=== PATIENT | female | born 1955 | race Caucasian/White ===

== ENCOUNTER → 2017-08-06 | Outpatient (CLI) | payer OTHER, MEDICARE ==
[~2017-08-06] MED LIST: ALBUTEROL0.63 MG/3; ALBUTEROL1.25 MG/3 INH; ALLERGY INJ INJ; ATENOLOL25 MG PO; ATENOLOL50 MG PO; ATORVASTATIN CA20 MG PO; BENADRYL25 M1 PO; BUDESONIDE0.5 MG/2 M NEB; CEFTIN500 MG PO; DAILY MULTIPLE1 EACH PO; FLUTICASONE; GABAPENTIN100 MG PO; GINKGO BILOBA60 MG PO; IRON PO; LORATADINE10 MG PO; LOSARTAN-HCTZ1 EAC1 PO; MACROBID 100 M100 MG PO; MELOXICAM15 MG PO; MONTELUKAST SOD10 MG PO; MYRBETRIQ25 MG PO; NEURONTIN100 MG PO; NOVOLIN N100 UNIT/1 INJ; NOVOLIN N100 UNIT/1 SC; NOVOLIN N100 UNIT/1 SQ; NOVOLIN R100 UNIT/1 INJ; PHENAZOPYRIDIN100 MG PO; PHENAZOPYRIDIN200 MG PO; PROAIR HFA INH8.5 GM INH; TIZANIDINE HCL4 MG PO; TYLENOL WITH C1 EACH PO; VITAMIN B-121000 MC2 PO; VITAMIN B-12500 MCG PO; VITAMIN E400 UNI1 PO
--- NOTE | 2017-08-06 16:39 | Diagnostic Imaging Report ---
PROCEDURE:THORACIC SPINE 2VW COMPARISON:None. INDICATIONS:SEVERE BACK PAIN FINDINGS:Normal mineralization. No acute displaced fracture or dislocation. No spondylolisthesis. Moderate multilevel degenerative disc changes in the thoracic spine. No aggressive lytic or sclerotic lesions. Paravertebral soft tissues are unremarkable. CONCLUSION:No acute abnormalities. Moderate multilevel degenerative disc changes in the thoracic spine. Be Owen M.D. Dictated by: Be Owen M.D. on 08/06/2017 at 16:47 Electronically approved by: Be Owen M.D. on 08/06/2017 at 16:47
--- NOTE | 2017-08-06 16:41 | Diagnostic Imaging Report ---
PROCEDURE:L-SPINE COMPLETE COMPARISON:Patients [facility], CT, CT ABDOMEN/PELVIS WO, 05/28/2017, 16:47. INDICATIONS:SEVERE BACK PAIN FINDINGS: There are 5 lumbar-type vertebral bodies. The vertebral bodies are well-aligned without evidence of spondylolisthesis. There are no acute, displaced fractures, lytic or blastic lesions. Mild multilevel degenerative disc changes in the lumbosacral spine. Vertebral heights are preserved. Facet hypertrophy L4-L5 and L5-S1, predominantly in the right lateral aspect. Bilateral oblique views show no spondylolysis. The sacroiliac joints are unremarkable. CONCLUSION: No acute abnormalities. Degenerative joint disease in the form of facet hypertrophy. L4-L5 and L5-S1, right greater than left. Be Owen M.D. Dictated by: Be Owen M.D. on 08/06/2017 at 16:49 Electronically approved by: Be Owen M.D. on 08/06/2017 at 16:49
--- NOTE | 2017-08-06 16:42 | Diagnostic Imaging Report ---
PROCEDURE:SACRUM X-RAY INDICATION:Severe low back pain COMPARISON:None. FINDINGS: Normal mineralization. No acute displaced fracture or dislocation. Facet hypertrophy worse at L5-S1, and worse on the right than on the left side. [place] joints are unremarkable. No lytic or blastic lesion. Sacral arches are preserved. CONCLUSION: No acute abnormalities. Facet hypertrophy, worse at L5-S1, and worse on the right on the left. Be Owen M.D. Dictated by: Be Owen M.D. on 08/06/2017 at 16:50 Electronically approved by: Be Owen M.D. on 08/06/2017 at 16:50
== END ==
LOC: RAD 15:01
PROVIDERS: ATTEND Internal Medicine
DX: S23.9XXA Sprain of unspecified parts of thorax, initial encounter (principal); M47.817 Spondylosis without myelopathy or radiculopathy, lumbosacral region
CPT/HCPCS: 72070; 72110; 72220

== ENCOUNTER 2021-10-24 14:21 | Observation (INO) | payer MEDICARE, OTHER ==
[~2021-10-24] VITALS: Ht 154.9 cm; Wt 113.4 kg
[2021-10-24] MEDS ORDERED: NITROGLYCERIN 2% OINT 1 GM PKT TOP ONE (14:45)
[2021-10-24 14:52] LABS: BASOPHILS # (AUTO) 0.1 (0.0-0.1); BASOPHILS % 0.6 % (0.0-1.0); EOSINOPHILS # (AUTO) 0.4 (0.0-0.4); EOSINOPHILS % 3.6 % (0.0-6.0); HEMATOCRIT 43.2 % (34.2-44.1); HEMOGLOBIN 14.3 g/dL (12.0-16.0); LYMPHOCYTES # (AUTO) 4.2 (1.0-3.2); LYMPHOCYTES % 34.4 % (18.0-39.1); MEAN CORPUSCULAR HEMOGLOBIN 31.3 pg (28-32); MEAN CORPUSCULAR HGB CONC 33.1 g/dL (31-35); MEAN CORPUSCULAR VOLUME 94.5 fL (81-99); MONOCYTES # (AUTO) 0.8 (0.2-0.8); MONOCYTES % 6.6 % (4.4-11.3); NEUTROPHILS # (AUTO) 6.6 (2.1-6.9); NEUTROPHILS % 54.4 % (38.7-80.0); PLATELET COUNT 210 x10e3/uL (140-360); RED BLOOD COUNT 4.57 x10e6/uL (3.6-5.1); RED CELL DISTRIBUTION WIDTH 13.2 % (11.7-14.4)
[2021-10-24 14:57] LABS: INR 0.95; PROTHROMBIN TIME 13.5 seconds (11.9-14.5)
[2021-10-24 15:06] LABS: ALBUMIN 3.6 g/dL (3.5-5.0); ALBUMIN/GLOBULIN RATIO 0.9 (0.8-2.0); ANION GAP 15.9 mmol/L (8-16); CALCIUM 9.1 mg/dL (8.4-10.2); CREATININE, SERUM 0.98 mg/dL (0.57-1.11); MAGNESIUM 1.7 MG/DL (1.3-2.1); POTASSIUM 3.9 mmol/L (3.5-5.1)
[2021-10-24 15:13] LABS: CREATINE KINASE MB 0.8 ng/mL (0-5.0)
[2021-10-24] MEDS ORDERED: ONDANSETRON HCL INJ 2MG/ML 2ML 2 MG/ML VIAL IV PRN (15:30)
[2021-10-24] MEDS ORDERED: Morphine 2mg Syringe 2 MG/ML SYR IV PRN (15:30)
[2021-10-24] MEDS ORDERED: ENOXAPARIN SODIUM INJ 100 MG/ML SYR SC ONE (15:30)
[2021-10-24 17:06] VITALS: BP 125/54
[2021-10-24 17:22] VITALS: BP 125/54
[2021-10-24 17:31] VITALS: BP 125/54
[2021-10-24] MEDS ORDERED: DEXTROSE 50% SYRINGE 50 ML IV PRN (17:45)
[2021-10-24] MEDS: NITROGLYCERIN 2% OINT 1 GM PKT TOP SCH (19:56)
[2021-10-24 20:00] VITALS: BP 103/47
[2021-10-24 20:26] VITALS: BP 103/47
[2021-10-24] MEDS ORDERED: FAMOTIDINE 20 MG/2 ML VIAL IV SCH (21:00)
[2021-10-24] MEDS: INSULIN REGULAR, HUMAN 100 UNIT/1 ML SQ SCH (21:44)
[2021-10-25] MEDS: NITROGLYCERIN 2% OINT 1 GM PKT TOP SCH ×5 (00:13→23:52)
[2021-10-25 00:25] VITALS: BP 115/52
[2021-10-25 02:10] LABS: CREATINE KINASE MB 0.6 ng/mL (0-5.0)
[2021-10-25 05:41] VITALS: BP 116/45
[2021-10-25 07:01] LABS: BASOPHILS # (AUTO) 0.1 (0.0-0.1); BASOPHILS % 0.8 % (0.0-1.0); EOSINOPHILS # (AUTO) 0.4 (0.0-0.4); EOSINOPHILS % 4.4 % (0.0-6.0); HEMATOCRIT 43.1 % (34.2-44.1); HEMOGLOBIN 14.1 g/dL (12.0-16.0); LYMPHOCYTES # (AUTO) 3.2 (1.0-3.2); MEAN CORPUSCULAR HEMOGLOBIN 31.1 pg (28-32); MEAN CORPUSCULAR HGB CONC 32.7 g/dL (31-35); MEAN CORPUSCULAR VOLUME 95.1 fL (81-99); MONOCYTES # (AUTO) 0.7 (0.2-0.8); MONOCYTES % 7.1 % (4.4-11.3); NEUTROPHILS % 53.4 % (38.7-80.0); PLATELET COUNT 178 x10e3/uL (140-360); RED BLOOD COUNT 4.53 x10e6/uL (3.6-5.1); RED CELL DISTRIBUTION WIDTH 13.2 % (11.7-14.4)
[2021-10-25 07:22] LABS: ALANINE AMINOTRANSFERASE 29 IU/L (0-55); ALBUMIN 3.4 g/dL (3.5-5.0); ALBUMIN/GLOBULIN RATIO 0.9 (0.8-2.0); ALKALINE PHOSPHATASE 102 IU/L (40-150); ANION GAP 15.1 mmol/L (8-16); BLOOD UREA NITROGEN 20 mg/dL (7-26); BUN/CREATININE RATIO 21 (6-25); CALCIUM 9.1 mg/dL (8.4-10.2); CARBON DIOXIDE 25 mmol/L (22-29); CHLORIDE 104 mmol/L (98-107); CHOL/HDL RATIO 4.1 (3.0-3.6); CHOLESTEROL 142 MD/DL (0-199); CREATININE, SERUM 0.96 mg/dL (0.57-1.11); EST GLOMERULAR FILTRATION RATE 58 ML/MIN (60-); GLUCOSE 211 mg/dL (74-118); HDL CHOLESTEROL 35 MG/DL (40-60); POTASSIUM 4.1 mmol/L (3.5-5.1); SODIUM 140 mmol/L (136-145); TRIGLYCERIDES 444 MG/DL (0-149)
[2021-10-25 07:42] LABS: MAGNESIUM 1.8 MG/DL (1.3-2.1)
[2021-10-25] MEDS: INSULIN REGULAR, HUMAN 100 UNIT/1 ML SQ SCH ×4 (07:45→21:43)
[2021-10-25 07:49] LABS: CREATINE KINASE 68 IU/L (29-168)
[2021-10-25 08:00] VITALS: BP 116/45
[2021-10-25 08:04] LABS: THYROID STIMULATING HORMONE 1.705 uIU/mL (0.350-4.940)
[2021-10-25 08:16] VITALS: BP 149/74
[2021-10-25] MEDS ORDERED: ALBUTEROL SULF 0.083% NEB SOLN 3 ML NEB INH PRN (08:30)
[2021-10-25] MEDS ORDERED: FAMOTIDINE 20 MG TAB PO SCH (09:00)
[2021-10-25] MEDS: MONTELUKAST SODIUM 10 MG TAB PO SCH (09:40)
[2021-10-25] MEDS: CYANOCOBALAMIN 1,000 MCG TAB PO SCH (09:40)
[2021-10-25] MEDS: ATENOLOL 50 MG TAB PO SCH (09:40)
[2021-10-25] MEDS: ASPIRIN 325 MG TAB EC PO SCH (09:40)
[2021-10-25] MEDS: TIZANIDINE HCL 4 MG TAB PO SCH ×2 (09:42→16:51)
[2021-10-25] MEDS: PHENAZOPYRIDINE HCL 100 MG TAB PO SCH ×3 (10:40→20:53)
[2021-10-25] MEDS: SUCRALFATE 1 GM/10 ML SUSP NG SCH ×4 (10:40→20:53)
[2021-10-25] MEDS: DIPHENHYDRAMINE HCL 25 MG CAP PO SCH (10:40)
[2021-10-25] MEDS: BUDESONIDE 0.5MG/2 ML NEB NEB SCH ×2 (10:56→18:20)
[2021-10-25 11:43] VITALS: BP 110/42
[2021-10-25] MEDS ORDERED: BUDESONIDE 0.5MG/2 ML NEB NEB SCH (12:00)
[2021-10-25] MEDS: CHOLESTYRAMINE 4 GM PACKET PO SCH (16:50)
[2021-10-25 20:00] VITALS: BP 99/53
[2021-10-25] MEDS: FUROSEMIDE INJ 10 MG/ML 4 ML VIAL IV SCH (20:30)
[2021-10-25] MEDS: ENOXAPARIN 30 MG/0.3 ML SYR SC SCH (20:53)
[2021-10-25] MEDS ORDERED: ATORVASTATIN 10 MG TAB PO SCH (21:00)
[2021-10-26 00:19] VITALS: BP 102/39
[2021-10-26 04:39] VITALS: BP 145/46
[2021-10-26] MEDS: NITROGLYCERIN 2% OINT 1 GM PKT TOP SCH ×2 (05:29→12:00)
[2021-10-26] MEDS: BUDESONIDE 0.5MG/2 ML NEB NEB SCH (06:48)
[2021-10-26 06:49] LABS: BASOPHILS # (AUTO) 0.1 (0.0-0.1); BASOPHILS % 0.6 % (0.0-1.0); EOSINOPHILS # (AUTO) 0.3 (0.0-0.4); EOSINOPHILS % 3.9 % (0.0-6.0); HEMATOCRIT 43.5 % (34.2-44.1); HEMOGLOBIN 13.9 g/dL (12.0-16.0); LYMPHOCYTES # (AUTO) 3.2 (1.0-3.2); MEAN CORPUSCULAR VOLUME 97.1 fL (81-99); MONOCYTES # (AUTO) 0.6 (0.2-0.8); MONOCYTES % 6.7 % (4.4-11.3); NEUTROPHILS # (AUTO) 4.1 (2.1-6.9); NEUTROPHILS % 49.3 % (38.7-80.0); PLATELET COUNT 172 x10e3/uL (140-360); RED BLOOD COUNT 4.48 x10e6/uL (3.6-5.1); RED CELL DISTRIBUTION WIDTH 12.9 % (11.7-14.4)
[2021-10-26 07:13] LABS: ALBUMIN 3.3 g/dL (3.5-5.0); ALBUMIN/GLOBULIN RATIO 0.8 (0.8-2.0); ANION GAP 13.2 mmol/L (8-16); CREATININE, SERUM 1.08 mg/dL (0.57-1.11); POTASSIUM 4.2 mmol/L (3.5-5.1)
[2021-10-26] MEDS ORDERED: PANTOPRAZOLE SOD 40 MG TABEC PO SCH (07:30)
[2021-10-26 08:00] VITALS: BP 145/46
[2021-10-26 08:16] VITALS: BP 111/38
[2021-10-26] MEDS: SUCRALFATE 1 GM/10 ML SUSP NG SCH ×2 (08:22→11:30)
[2021-10-26] MEDS: INSULIN REGULAR, HUMAN 100 UNIT/1 ML SQ SCH ×2 (08:24→11:30)
[2021-10-26] MEDS: ATENOLOL 50 MG TAB PO SCH (09:00)
[2021-10-26] MEDS ORDERED: FENOFIBRATE 145 MG TAB PO SCH (09:00)
[2021-10-26] MEDS: CHOLESTYRAMINE 4 GM PACKET PO SCH (09:00)
[2021-10-26] MEDS: DIPHENHYDRAMINE HCL 25 MG CAP PO SCH (09:30)
[2021-10-26] MEDS: PHENAZOPYRIDINE HCL 100 MG TAB PO SCH (09:30)
[2021-10-26] MEDS: FUROSEMIDE INJ 10 MG/ML 4 ML VIAL IV SCH (09:30)
[2021-10-26] MEDS: ASPIRIN 325 MG TAB EC PO SCH (09:30)
[2021-10-26] MEDS: MONTELUKAST SODIUM 10 MG TAB PO SCH (09:31)
[2021-10-26] MEDS: CYANOCOBALAMIN 1,000 MCG TAB PO SCH (09:32)
[2021-10-26] MEDS: ENOXAPARIN 30 MG/0.3 ML SYR SC SCH (09:33)
[2021-10-26] MEDS: TIZANIDINE HCL 4 MG TAB PO SCH (09:33)
[2021-10-26] MEDS ORDERED: ULTRAM50 MG PO (10:17)
[2021-10-26] MEDS ORDERED: FLUCONAZOLE 100 MG TAB PO ONE ×2 (10:30→13:45)
[2021-10-26 12:59] VITALS: BP 125/66
== END 2021-10-26 15:59 | disposition home or self-care (01) ==
LOC: ER 14:26 → INTOOBSV 15:21 → ERHOLD 15:21 → MED/SURG3 16:53
PROVIDERS: ADMIT Internal Medicine; ATTEND Internal Medicine
DX: R07.89 Other chest pain (principal); I10 Essential (primary) hypertension; E11.42 Type 2 diabetes mellitus with diabetic polyneuropathy; J44.9 Chronic obstructive pulmonary disease, unspecified; E78.2 Mixed hyperlipidemia; K21.9 Gastro-esophageal reflux disease without esophagitis; Z90.49 Acquired absence of other specified parts of digestive tract; Z87.891 Personal history of nicotine dependence; Z88.1 Allergy status to other antibiotic agents; Z88.2 Allergy status to sulfonamides; Z88.8 Allergy status to other drugs, medicaments and biological substances; M19.90 Unspecified osteoarthritis, unspecified site; Z87.11 Personal history of peptic ulcer disease; L30.4 Erythema intertrigo; Z68.42 Body mass index [BMI] 45.0-49.9, adult; Z20.822 Contact with and (suspected) exposure to COVID-19; Z79.4 Long term (current) use of insulin
CPT/HCPCS: 36415 ×3; 71045; 80053 ×3; 80061; 82550 ×2; 82553 ×2; 82948 ×3; 83036; 83735 ×2; 83880; 84100; 84443; 84484 ×2; 85025 ×3; 85610; 85730; 93005; 93306; 94640 ×3; 94799 ×3; 96372; 97116; 97139; 97161; 99284; G0378 ×3; J1650 ×3; J1940; J2270; S0164; U0002

== ENCOUNTER 2022-09-28 19:57 | Inpatient (IN) | payer MEDICARE, OTHER ==
[~2022-09-28] VITALS: Ht 154.9 cm; Wt 113.4 kg
[~2022-09-28 19:57] MED LIST changes: +ULTRAM50 MG PO
[2022-09-28] MEDS ORDERED: NITROGLYCERIN 2% OINT 1 GM PKT TOP ONE (21:00)
[2022-09-28 21:40] LABS: ALBUMIN 3.3 g/dL (3.5-5.0); ALBUMIN/GLOBULIN RATIO 0.9 (0.8-2.0); ANION GAP 16.6 mmol/L (8-16); CALCIUM 9.1 mg/dL (8.4-10.2); CREATININE, SERUM 1.14 mg/dL (0.57-1.11); POTASSIUM 3.6 mmol/L (3.5-5.1)
[2022-09-28 21:45] LABS: BASOPHILS # (AUTO) 0.1 (0.0-0.1); BASOPHILS % 0.7 % (0.0-1.0); EOSINOPHILS # (AUTO) 0.4 (0.0-0.4); EOSINOPHILS % 3.5 % (0.0-6.0); HEMATOCRIT 45.9 % (34.2-44.1); HEMOGLOBIN 14.9 g/dL (12.0-16.0); LYMPHOCYTES % 38.5 % (18.0-39.1); MEAN CORPUSCULAR HEMOGLOBIN 30.7 pg (28-32); MEAN CORPUSCULAR HGB CONC 32.5 g/dL (31-35); MEAN CORPUSCULAR VOLUME 94.4 fL (81-99); MONOCYTES # (AUTO) 0.8 (0.2-0.8); MONOCYTES % 7.6 % (4.4-11.3); NEUTROPHILS # (AUTO) 5.2 (2.1-6.9); NEUTROPHILS % 49.4 % (38.7-80.0); PLATELET COUNT 186 x10e3/uL (140-360); RED BLOOD COUNT 4.86 x10e6/uL (3.6-5.1); RED CELL DISTRIBUTION WIDTH 13.2 % (11.7-14.4)
[2022-09-28] MEDS ORDERED: ALBUTEROL/IPRATROPIUM 3 ML NEB NEB PRN (22:30)
[2022-09-28] MEDS ORDERED: CLOPIDOGREL BISULFATE 75 MG TAB PO ONE (22:30)
[2022-09-28] MEDS ORDERED: DEXTROSE 50% SYRINGE 50 ML IV PRN (22:30)
[2022-09-28 23:03] LABS: CREATINE KINASE MB 0.8 ng/mL (0-5.0)
[2022-09-29] VITALS (7 sets, daily range): BP systolic 125–138; BP diastolic 46–68
[2022-09-29] MEDS ORDERED: FUROSEMIDE40 MG PO (00:43)
[2022-09-29] MEDS ORDERED: NITROFURANTOIN100 MG PO ×2 (00:43)
[2022-09-29] MEDS ORDERED: NITROGLYCERIN0.4 MG SL (00:43)
[2022-09-29] MEDS ORDERED: ATORVASTATIN CA10 MG PO (00:43)
[2022-09-29] MEDS: NITROGLYCERIN 2% OINT 1 GM PKT TOP SCH ×2 (01:03→06:01)
[2022-09-29 04:44] LABS: BASOPHILS # (AUTO) 0.1 (0.0-0.1); BASOPHILS % 0.7 % (0.0-1.0); EOSINOPHILS # (AUTO) 0.4 (0.0-0.4); EOSINOPHILS % 4.4 % (0.0-6.0); HEMATOCRIT 46.3 % (34.2-44.1); HEMOGLOBIN 14.7 g/dL (12.0-16.0); LYMPHOCYTES # (AUTO) 3.5 (1.0-3.2); LYMPHOCYTES % 36.3 % (18.0-39.1); MEAN CORPUSCULAR HEMOGLOBIN 30.6 pg (28-32); MEAN CORPUSCULAR HGB CONC 31.7 g/dL (31-35); MEAN CORPUSCULAR VOLUME 96.3 fL (81-99); MONOCYTES # (AUTO) 0.8 (0.2-0.8); MONOCYTES % 8.2 % (4.4-11.3); NEUTROPHILS # (AUTO) 4.9 (2.1-6.9); PLATELET COUNT 169 x10e3/uL (140-360); RED BLOOD COUNT 4.81 x10e6/uL (3.6-5.1)
[2022-09-29 05:04] LABS: ALBUMIN 3.1 g/dL (3.5-5.0); ALBUMIN/GLOBULIN RATIO 0.9 (0.8-2.0); ANION GAP 16.3 mmol/L (8-16); CALCIUM 9.2 mg/dL (8.4-10.2); CHOL/HDL RATIO 4.8 (3.0-3.6); CREATININE, SERUM 1.03 mg/dL (0.57-1.11); POTASSIUM 3.3 mmol/L (3.5-5.1)
[2022-09-29 05:23] LABS: CREATINE KINASE MB 0.8 ng/mL (0-5.0)
[2022-09-29] MEDS: INSULIN REGULAR, HUMAN 100 UNIT/1 ML SQ SCH ×4 (07:30→21:00)
[2022-09-29] MEDS ORDERED: CLOPIDOGREL BISULFATE 75 MG TAB PO SCH (09:00)
[2022-09-29] MEDS ORDERED: ASPIRIN 81 MG ENTERIC COATED PO SCH (09:00)
[2022-09-29] MEDS: METOPROLOL SUCCINATE 25 MG TAB XL PO SCH (11:15)
[2022-09-29] MEDS ORDERED: NEURONTIN100 MG PO (11:47)
[2022-09-29 16:02] LABS: CREATINE KINASE 43 IU/L (29-168)
[2022-09-29] MEDS: ATORVASTATIN 10 MG TAB PO SCH (20:33)
[2022-09-29] MEDS ORDERED: ASPIRIN 81 MG ENTERIC COATED PO ONE (21:30)
[2022-09-29] MEDS ORDERED: HYDROCODONE/APAP 5MG-325MG TAB PO ONE (21:30)
[2022-09-30] VITALS (13 sets, daily range): BP systolic 125–163; BP diastolic 54–103
[2022-09-30] MEDS ORDERED: ALPRAZOLAM 0.25 MG TAB PO ONE (04:15)
[2022-09-30] MEDS: INSULIN REGULAR, HUMAN 100 UNIT/1 ML SQ SCH ×4 (07:30→21:00)
[2022-09-30] MEDS: METOPROLOL SUCCINATE 25 MG TAB XL PO SCH (09:00)
[2022-09-30] MEDS ORDERED: HEPARIN SOD (PORCINE) 1000 UNIT/ML 30ML ONE (09:44)
[2022-09-30] MEDS ORDERED: LIDOCAINE HCL 2% LOCAL 20 ML VIAL ONE (09:44)
[2022-09-30] MEDS ORDERED: HEPARIN SOD/SOD CHLORIDE 2,000 ML ONE (09:44)
[2022-09-30] MEDS ORDERED: IOPAMIDOL 370 MG/ML 100 ML INFUS..BTL INJ ONE (09:45)
[2022-09-30] MEDS ORDERED: NITROGLYCERIN/D5W 200 MCG/ML 250 ML ONE (09:45)
[2022-09-30] MEDS ORDERED: SODIUM CHLORIDE 0.9% 1000ML 1,000 ML ONE (09:45)
[2022-09-30] MEDS ORDERED: FENTANYL CITRATE/PF 100MCG/2 ML INJ ONE (09:58)
[2022-09-30] MEDS ORDERED: MIDAZOLAM HCL 2 MG/2 ML VIAL ONE (09:58)
[2022-09-30] MEDS ORDERED: HYDRALAZINE HCL 20 MG/ML VIAL ONE (10:46)
[2022-09-30] MEDS ORDERED: HYDROCODONE/APAP 5MG-325MG TAB ONE (11:25)
[2022-09-30] MEDS ORDERED: HYDROCODONE/APAP 5MG-325MG TAB PO ONE (11:45)
[2022-09-30] MEDS ORDERED: TIZANIDINE HCL 4 MG TAB PO SCH (12:00)
[2022-09-30] MEDS: ACETAMINOPHEN/CODEINE 300MG - 30MG TAB PO PRN (14:06)
[2022-09-30] MEDS ORDERED: Morphine 4mg INJECTION 4 MG/ML INJ IV PRN (14:45)
[2022-09-30] MEDS: PHENAZOPYRIDINE HCL 100 MG TAB PO SCH ×2 (15:13→21:38)
[2022-09-30] MEDS: ATORVASTATIN 10 MG TAB PO SCH ×2 (21:00→21:38)
[2022-10-01] VITALS: BP 140/68
[2022-10-01 04:00] VITALS: BP 110/49
[2022-10-01] MEDS: ACETAMINOPHEN/CODEINE 300MG - 30MG TAB PO PRN (04:10)
[2022-10-01] MEDS: INSULIN REGULAR, HUMAN 100 UNIT/1 ML SQ SCH ×2 (07:30→11:30)
[2022-10-01 08:00] VITALS: BP 142/55
[2022-10-01 08:20] VITALS: BP 142/55
[2022-10-01] MEDS: PHENAZOPYRIDINE HCL 100 MG TAB PO SCH ×2 (09:56→14:15)
[2022-10-01] MEDS: METOPROLOL SUCCINATE 25 MG TAB XL PO SCH (09:56)
== END 2022-10-01 15:45 | disposition home or self-care (01) | DRG 287 ==
LOC: ER 20:05 → ERHOLD 22:28 → MED/SURG3 23:57 → OBSVTOIN 09-30 14:43
PROVIDERS: ADMIT Family Medicine; ATTEND Family Medicine
PROC: 4A023N7 Measurement of Cardiac Sampling and Pressure, Left Heart, Percutaneous Approach (ICD-10-PCS; principal; 2022-09-30)
PROC: B2111ZZ Fluoroscopy of Multiple Coronary Arteries using Low Osmolar Contrast (ICD-10-PCS; 2022-09-30)
PROC: B2151ZZ Fluoroscopy of Left Heart using Low Osmolar Contrast (ICD-10-PCS; 2022-09-30)
DX: I25.10 Atherosclerotic heart disease of native coronary artery without angina pectoris (principal); N39.0 Urinary tract infection, site not specified; Z68.42 Body mass index [BMI] 45.0-49.9, adult; I10 Essential (primary) hypertension; J44.9 Chronic obstructive pulmonary disease, unspecified; K21.9 Gastro-esophageal reflux disease without esophagitis; E11.40 Type 2 diabetes mellitus with diabetic neuropathy, unspecified; I49.5 Sick sinus syndrome; I45.10 Unspecified right bundle-branch block; E78.00 Pure hypercholesterolemia, unspecified; E66.01 Morbid (severe) obesity due to excess calories; G47.30 Sleep apnea, unspecified; Z20.822 Contact with and (suspected) exposure to COVID-19; Z90.49 Acquired absence of other specified parts of digestive tract; Z88.2 Allergy status to sulfonamides; Z88.0 Allergy status to penicillin; Z79.4 Long term (current) use of insulin; Z99.81 Dependence on supplemental oxygen
CPT/HCPCS: 36415; 71045; 80053; 80061; 82550; 82553; 82948; 84484; 85025; 93005; 93306; 93458; 94799; 99152; 99153; 99252; 99285; C1887; G0378; J1644; J2001; J2250; J2270; J7030; Q9967